=== PATIENT | male | born 1955 | race Caucasian/White ===

== ENCOUNTER 2016-11-05 08:47 | Day surgery (SDC) | payer BC ==
[~2016-11-05 08:47] MED LIST: LIDOCAINE HCL 1%/EPI 1:100,000 - 20 ML VIAL ONE; SODIUM BICARBONATE 8.4% - 50 ML VIAL ONE
--- NOTE | 2016-11-05 10:58 | GEN.OPNOTE ---
Operative Note Surgery Date: 11/05/16 Preoperative Diagnosis: Pigmented skin lesions left face. 1 under the left eye and one on the left cheek. Postoperative Diagnosis: Same. Procedure: Excision 6 mm skin lesion under the left eye. 4 mm punch biopsy of the pigmented lesion on the left cheek. Surgeon: Murray Patton MD Anesthesia Type: Local (1% Xylocaine with epinephrine and bicarbonate.) Estimated Blood Loss (mL): 2 Fluids: None. Pathology: Specimens to pathology. Indications: pigmented skin lesions of the face. Complications: None. Operative Summary: The patient was taken to the operating suite and placed on the operating table in a supine position. Surgical timeout was performed. The cheek was prepped and draped in a sterile fashion. The areas were infiltrated with 1% Xylocaine with epinephrine and sodium bicarbonate. A 6 mm punch was used to excise the lesion under the left side. This was closed with 2 simple stitches of 4-0 Prolene. The lesion further down on the cheek was biopsied with a 4 mm punch biopsy. The skin defect was closed with a simple 4-0 Prolene. Mastisol and a patch of Steri-Strips were placed over both incisions. Patient tolerated the procedure well without complication. He was taken to outpatient surgery in stable condition. All counts were correct.
[2016-11-05 11:09] VITALS: RESP 16; TEMP 98.1
== END 2016-11-05 11:07 | disposition home or self-care (01) ==
LOC: SDSC 08:47
PROVIDERS: ATTEND Surgery
DX: L81.9 Disorder of pigmentation, unspecified (principal); C44.119 Basal cell carcinoma of skin of left eyelid, including canthus